=== PATIENT | female | born 1960 | race Caucasian/White ===

== ENCOUNTER 2022-02-18 00:15 | Emergency (ER) | payer OTHER ==
[~2022-02-18] VITALS: Ht 170 cm; Wt 220.0 kg
[2022-02-18 00:23] VITALS: BP 145/92
--- NOTE | 2022-02-18 00:42 | ED Fall/Injury ---
General Stated Complaint: FALL Source: patient, spouse Exam Limitations: no limitations History of Present Illness Date Seen by Provider: February 18, 2022 Time Seen by Provider: 00:18 Initial Comments Patient to the ER by private conveyance from home where just prior to arrival about 30-40 minutes she was walking and tripped over the sidewalk and fell down to her knees and then struck her face against the ground. She did not lose consciousness but she was having nausea without vomiting. The nausea has passed. She has not anything for pain. She says a significant in her face as well as in her neck. No prior history of surgery to her neck. No numbness or tingling loss of control of bowel or bladder or weakness. She is also having so me pain in her right elbow and in her hand she has some abrasions. Her knees are not bothering her she states. She is not on blood thinners. Allergies and Home Medications Allergies Coded Allergies: No Known Drug Allergies (Unverified , 02/18/22) Patient Home Medication List Home Medication List Reviewed: Yes Review of Systems Review of Systems Constitutional: No chills, No diaphoresis Eyes: Denies Blindness, Denies Blurred Vision Ears, Nose, Mouth, Throat: denies ear pain, denies ear discharge Respiratory: No cough, No short of breath Cardiovascular: No chest pain, No edema Gastrointestinal: No abdominal pain; nausea; No vomiting Genitourinary: No discharge, No dysuria Musculoskeletal: see HPI; No back pain; joint pain, neck pain Skin: other (Abrasions of the face forehead, right hand, nose) All Other Systems Reviewed Negative Unless Noted: Yes Past Kzdnqww-Wsmyox-Hiwibg Hx Patient Social History Tobacco Use?: No Use of E-Cig and/or Vaping dev: No Substance use?: No Physical Exam Vital Signs Vital Signs - First Documented 02/18/22 00:23 Temp 35.9 Pulse 74 Resp 20 B/P (MAP) 145/92 (109) Pulse Ox 97 Capillary Refill : Height, Weight, BMI Height: '" Weight: lbs. oz. kg; BMI Method: General Appearance: WD/WN, mild distress HEENT: PERRL/EOMI (Negative raccoon eyes), TMs normal (Negative for reza sign or hemotympanum), pharynx normal (No new chips or fractures in the teeth.), other (Superficial abrasions and hematoma over the forehead midline and nose and cheeks as well as on the mentum) Neck: supple, normal inspection, tender midline (Upper and middle cervical spine tender to palpation without step-off or deformity) Cardiovascular: normal peripheral pulses, regular rate, rhythm Respiratory: lungs clear, normal breath sounds, no respiratory distress, no accessory muscle use Peripheral Pulses: 2+ Dorsalis Pedis (R), 2+ Left Dors-Pedis (L) Gastrointestinal: normal bowel sounds, non tender, soft Extremities: normal range of motion, non-tender, normal capillary refill 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 as 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, no motor/sensory deficits, alert, normal mood/affect, oriented x 3 Skin: normal color, warm/dry Maggy Coma Score Best Eye Response: (4) Open Spontaneously Best Verbal Response: (5) Oriented Best Motor Response: (6) Obeys Commands [place] Total: 15 Progress/Results/Core Measures Results/Orders Lab Results Laboratory Tests Test 02/18/22 00:35 02/18/22 02:10 Range/Units White Blood Count 9.3 4.3-11.0 10^3/uL Red Blood Count 3.98 3.80-5.11 10^6/uL Hemoglobin 11.5 11.5-16.0 g/dL Hematocrit 35 35-52 % Mean Corpuscular Volume 88 80-99 fL Mean Corpuscular Hemoglobin 29 25-34 pg Mean Corpuscular Hemoglobin Concent 33 32-36 g/dL Red Cell Distribution Width 12.9 10.0-14.5 % Platelet Count 235 130-400 10^3/uL Mean Platelet Volume 10.2 9.0-12.2 fL Immature Granulocyte % (Auto) 0 % Neutrophils (%) (Auto) 68 42-75 % Lymphocytes (%) (Auto) 22 12-44 % Monocytes (%) (Auto) 8 0-12 % Eosinophils (%) (Auto) 1 0-10 % Basophils (%) (Auto) 1 0-10 % Neutrophils # (Auto) 6.3 1.8-7.8 10^3/uL Lymphocytes # (Auto) 2.1 1.0-4.0 10^3/uL Monocytes # (Auto) 0.7 0.0-1.0 10^3/uL Eosinophils # (Auto) 0.1 0.0-0.3 10^3/uL Basophils # (Auto) 0.1 0.0-0.1 10^3/uL Immature Granulocyte # (Auto) 0.0 0.0-0.1 10^3/uL Sodium Level 137 135-145 MMOL/L Potassium Level 4.0 3.6-5.0 MMOL/L Chloride Level 101 98-107 MMOL/L Carbon Dioxide Level 22 21-32 MMOL/L Anion Gap 14 5-14 MMOL/L Blood Urea Nitrogen 27 H 7-18 MG/DL Creatinine 1.24 0.60-1.30 MG/DL Estimat Glomerular Filtration Rate 50 BUN/Creatinine Ratio 22 Glucose Level 320 H 70-105 MG/DL Calcium Level 9.6 8.5-10.1 MG/DL Glucometer 312 H 70-110 MG/DL My Orders Orders - ANSLEY PLUMMER Ct Head/Face/Cervical Wo (02/18/22 00:34) Elbow, Right, 3 Views (02/18/22 00:34) Cbc With Automated Diff (02/18/22 00:34) Basic Metabolic Panel (02/18/22 00:34) Fentanyl Inj (Sublimaze Injection) (02/18/22 00:45) Dipht,Pertuss(Acell),Tet Adult (Boostrix (02/18/22 00:45) Fentanyl Inj (Sublimaze Injection) (02/18/22 01:30) Ondansetron Injection (Zofran Injectio (02/18/22 01:45) Ondansetron Injection (Zofran Injectio (02/18/22 01:34) Accucheck Stat ONCE (02/18/22 02:06) Insulin Determir (Per Unit) (Levemir (Pe (02/18/22 02:15) Medications Given in ED Current Medications Medications Dose Ordered Sig/Carlos Eduardo Route Start Time Stop Time Status Last Admin Dose Admin Diphtheria/ Tetanus/Acell Pertussis 0.5 ml ONCE ONCE IM 02/18/22 00:45 02/18/22 00:46 DC 02/18/22 00:48 0.5 ML Fentanyl Citrate 25 mcg ONCE ONCE IVP 02/18/22 00:45 02/18/22 00:46 DC 02/18/22 00:42 25 MCG Fentanyl Citrate 50 mcg ONCE ONCE IVP 02/18/22 01:30 02/18/22 01:31 DC 02/18/22 01:31 50 MCG Insulin Detemir 10 unit ONCE ONCE SQ 02/18/22 02:15 02/18/22 02:16 DC 02/18/22 02:19 10 UNIT Ondansetron HCl 8 mg ONCE ONCE IVP 02/18/22 01:45 02/18/22 01:46 DC 02/18/22 01:36 8 MG Vital Signs/I&O 02/18/22 00:23 Temp 35.9 Pulse 74 Resp 20 B/P (MAP) 145/92 (109) Pulse Ox 97 Progress Progress Note #1: Time: 00:41 Progress Note We will start with 25 mcg of fentanyl and get a CT of her head face and cervical spine. X-ray of her right elbow. No pain in anatomic snuffbox or wrist with fu ll range of motion. C-collar was placed on arrival to the ER room Progress Note #2: Time: 01:36 Progress Note We will put a sugar-tong splint on her right forearm to immobilize her elbow fracture and have her follow-up with orthopedic surgeon. She has a significantly elevated blood sugar of 320 which could be because of a stress darron ction to the fall and pain. She is having some nausea and continued pains another 50 mcg of fentanyl and 8 of Zofran were ordered. Plan to do an Accu- Chek and recheck her blood sugar here in about half an hour and see if it is going down. If it is not we will give her 5 of insulin and recommend her to follow-up with her primary care doctor. Progress Note #3: Time: 02:18 Progress Note Patient's blood sugar still 314 so we will give her 10 units of Levemir and have her follow-up with her PCP. Diagnostic Imaging Diagonstic Imaging: Xray Plain Films/CT/US/NM/MRI: elbow (r) Comments Closed, nondisplaced, nonangulated, noncomminuted compression fracture of the head of the proximal radius not involving the articular surface on the right side. Reviewed: Reviewed by Me Diagonstic Imaging: CT Plain Films/CT/US/NM/MRI: facial bones, c-spine, head Comments No acute intracranial abnormality. No acute fracture of the C-spine. No acute fracture of the facial bones. Reviewed: Reviewed Night Hawk Study, Reviewed by Me Departure Impression Primary Impression: Fall Qualified Codes: W19.XXXA - Unspecified fall, initial encounter Additional Impressions: Facial abrasion Qualified Codes: S00.81XA - Abrasion of other part of head, initial encounter Abrasion of hand, right Qualified Codes: S60.511A - Abrasion of right hand, initial encounter Concussion Qualified Codes: S06.0X0A - Concussion without loss of consciousness, initial encounter Elbow fracture, right Qualified Codes: S42.401A - Unspecified fracture of lower end of right humerus, initial encounter for closed fracture Disposition: HOME, SELF-CARE Condition: Stable Departure-Patient Inst. Decision time for Depature: 03:08 Referrals: NO,LOCAL PHYSICIAN (PCP) Primary Care Physician FORTINO AGUIRRE MD Patient Instructions: Elbow Fracture (DC), Neck Pain ED, Skin Abrasions, Concussion, Adult ED Add. Discharge Instructions: Make a follow-up appointment with the orthopedic surgeon by calling his office on Sunday for next week. Ice 20 minutes on every 2 hours for the first 2 to 3 days as needed for pain. Tylenol 1000 mg every 8 hours as needed for pain. Ibuprofen 800 mg every 8 hours as needed for pain. Cyclobenzaprine 1 tablet every 8 hours as needed for muscle spasms. Cyclobenzaprine will cause drowsiness. If you are too groggy when you wake up then you may cut the tablet in half next time. Heat and topical creams as needed for pain control. Low stimuli environment for the next couple days. If you have symptoms of a concussion which include headache, sleepiness, off-balance, nausea or irritability then you need to get sleep. Treat the symptoms as appropriate. Ondansetron 1 tablet every 6 hours as needed for nausea or vomiting. Scripts Hydrocodone/Acetaminophen (Hydrocodone-Acetamin 5-325 mg) 5 Mg-325 Mg Tablet 1 TAB PO Q6H PRN for PAIN-MODERATE (5-7), #10 TAB 0 Refills Prov: ANSLEY PLUMMER 02/18/22 Ondansetron (Ondansetron Odt) 4 Mg Tab.rapdis 4 MG PO Q6H PRN for NAUSEA/VOMITING, #8 TAB 0 Refills Prov: ANSLEY PLUMMER 02/18/22 Cyclobenzaprine HCl (Cyclobenzaprine HCl) 10 Mg Tablet 10 MG PO Q8H PRN for SPASMS, #20 TAB 0 Refills Prov: ANSLEY PLUMMER 02/18/22 Work/School Note: Work Release Form Date Seen in the Emergency Department: February 18, 2022 Return to Work: February 22, 2022 Restrictions: No Restrictions Copy Copies To 1: FORTINO AGUIRRE MD, TITUS J February 18, 2022 00:42
[2022-02-18] MEDS ORDERED: fentaNYL INJ 100 MCG/2 ML AMP IVP ONE ×2 (00:45→01:30)
[2022-02-18] MEDS ORDERED: TETANUS,DIPTH,PERTUSS P/F (BOOSTRIX) 0.5 ML VIAL IM ONE (00:45)
[2022-02-18 00:47] LABS: BASOPHILS # (AUTO) 0.1 10^3/uL (0.0-0.1); BASOPHILS % (AUTO) 1 % (0-10); EOSINOPHILS # (AUTO) 0.1 10^3/uL (0.0-0.3); EOSINOPHILS % (AUTO) 1 % (0-10); HEMATOCRIT 35 % (35-52); HEMOGLOBIN 11.5 g/dL (11.5-16.0); LYMPHOCYTES # (AUTO) 2.1 10^3/uL (1.0-4.0); LYMPHOCYTES % (AUTO) 22 % (12-44); MEAN CORPUSCULAR HEMOGLOBIN 29 pg (25-34); MEAN CORPUSCULAR HGB CONC 33 g/dL (32-36); MEAN CORPUSCULAR VOLUME 88 fL (80-99); MEAN PLATELET VOLUME 10.2 fL (9.0-12.2); MONOCYTES # (AUTO) 0.7 10^3/uL (0.0-1.0); MONOCYTES % (AUTO) 8 % (0-12); NEUTROPHILS # (AUTO) 6.3 10^3/uL (1.8-7.8); NEUTROPHILS % (AUTO) 68 % (42-75); PLATELET COUNT 235 10^3/uL (130-400); WHITE BLOOD COUNT 9.3 10^3/uL (4.3-11.0)
[2022-02-18 01:06] LABS: CALCIUM 9.6 MG/DL (8.5-10.1)
[2022-02-18 01:11] LABS: CREATININE SERUM 1.24 MG/DL (0.60-1.30)
[2022-02-18] MEDS ORDERED: ONDANSETRON 4 MG/2 ML (SDV) Z0FRAN ONE (01:34)
[2022-02-18] MEDS ORDERED: ONDANSETRON 4 MG/2 ML (SDV) Z0FRAN IVP ONE (01:45)
[2022-02-18] MEDS ORDERED: CYCL10TA25 PO ×2 (03:17→03:57)
[2022-02-18] MEDS ORDERED: ONDA4TAB11 PO ×2 (03:17→03:57)
[2022-02-18] MEDS ORDERED: ACHD5005 PO ×2 (03:17→03:57)
[2022-02-18] MEDS ORDERED: ORPHENADRINE 60 MG/2 ML (NORFLEX) AMP (ED ONLY) IM ONE (03:30)
--- NOTE | 2022-02-18 06:58 | Diagnostic Imaging Report ---
EXAMINATION: CT head, face and CT cervical spine without contrast. TECHNIQUE: Multiple contiguous axial images were obtained through the face, brain and cervical spine without the use of intravenous contrast. Sagittal and coronal reformations through the cervical spine were then performed. All CT scans use one or more of the following dose optimizing techniques: automated exposure control, MA and/or KvP adjustment based on patient size and exam type or iterative reconstruction. HISTORY: Head and face pain after fall. COMPARISON: None available. FINDINGS: HEAD: The ventricles and sulci are normal. No abnormal attenuation of brain parenchyma is present. No acute intracranial hemorrhage or abnormal extra-axial fluid collections are present. No hyperdense vessel. There is left frontal scalp swelling and hematoma. The calvarium is intact. The mastoid air cells are clear. The visualized paranasal sinuses are clear. The orbits are normal. C-SPINE: Vertebral body height and alignment are preserved. No acute fracture, dislocation, or destructive osseous process. Multilevel facet hypertrophy without perched facets. Multilevel cervical spondylosis. The paraspinous soft tissues are normal. The visualized thyroid gland is normal. The visualized lung apices are normal. FACE: No fracture is seen in the face. The nasal bones are normal. Mandible and maxillae are normal. Zygomatic arches are normal. Pterygoid plates are normal. No soft tissue abnormality is seen. IMPRESSION: 1. No acute intracranial abnormality. 2. Degenerative changes cervical spine without acute osseous abnormality. 3. No fracture in the face. 4. Left frontal scalp hematoma without underlying calvarial fracture. 5. Agree with preliminary interpretation. Dictated by: Dictated on workstation # [id number]
--- NOTE | 2022-02-18 07:35 | Diagnostic Imaging Report ---
HISTORY: Trauma to the right elbow, elbow pain. COMPARISON: None TECHNIQUE: 3 views of the right elbow FINDINGS: There is subtle cortical irregularity at the lateral aspect of the radial neck with what appears to be cortical offset. This concerning for a nondisplaced fracture of the radial neck. No significant elbow joint effusion is seen. Alignment otherwise appears normal. There is a well-corticated ossification at the medial epicondyle, likely from remote trauma. Small enthesophyte is noted at the olecranon. IMPRESSION: 1. Suspected nondisplaced fracture of the right radial neck. Findings discussed with Dr. Smith by Dr. Orozco, on 02/18/2022 7:28 AM. Dictated by: Dictated on workstation # [id number]
== END 2022-02-18 03:45 | disposition home or self-care (01) ==
LOC: ER 00:21
DX: S52.124A Nondisplaced fracture of head of right radius, initial encounter for closed fracture (principal); S06.0X0A Concussion without loss of consciousness, initial encounter; R40.2360 Coma scale, best motor response, obeys commands, unspecified time; R40.2140 Coma scale, eyes open, spontaneous, unspecified time; R40.2250 Coma scale, best verbal response, oriented, unspecified time; Z23 Encounter for immunization; W01.198A Fall on same level from slipping, tripping and stumbling with subsequent striking against other object, initial encounter; Y92.480 Sidewalk as the place of occurrence of the external cause
CPT/HCPCS: 36415; 70450; 70486; 72125; 73080; 80048; 82947; 85025; 90715